=== PATIENT | male | born 2005 | race Caucasian/White ===

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

== ENCOUNTER 2024-04-28 19:36 | Emergency (ER) | payer OTHER ==
[2024-04-28 20:01] VITALS: BP 129/73; PULSE 73; RESP 18; TEMP 98.3; BMI 22.4
[2024-04-28] MEDS ORDERED: IBUPROFEN 600 MG TABLET (FP) PO ONE (20:35)
[2024-04-28] MEDS: IBUPROFEN 600 MG TABLET (FP) PO ONE (20:42)
== END 2024-04-28 20:43 | disposition home or self-care (01) ==
LOC: FER 19:36
DX: S83.92XA Sprain of unspecified site of left knee, initial encounter (principal); V00.311A Fall from snowboard, initial encounter
CPT/HCPCS: 73562-TC-LT-FY; 99283-25